=== PATIENT | female | born 1975 | race Caucasian/White ===

== ENCOUNTER → 2020-11-12 09:42 | Outpatient (CLI) | payer OTHER, SELFPAY ==
--- NOTE | 2020-11-12 14:54 | DI.MAMMO_ITS ---
EXAM: MG MAMMO SCREENING CLINICAL HISTORY: screening,Z12.39. TECHNIQUE: Bilateral full field digital CC and MLO mammographic images were obtained with 3D tomosyn thesis and utilizing computer aided detection (CAD). COMPARISON: None. This is a baseline screening mammogram on this 45-year-old patient. FINDINGS: No significant radiograph findings in the left breast. However, in the medial aspect of the right breast there is an ominous ill-defined spiculated mass timmy suring approximately the 4 x 3 centimetres which is suspicious for malignancy. There is some associated architectural distortion. There are no malignant-appearing microcalcification groups in either breast. IMPRESSION: 1. Finding in the medial aspect of the right breast which is highly suspicious for malignancy. Spot compression views and ultrasound are recommended. 2. No radiographic evidence malignancy in left breast. Report called by myself to [id number] Thursday11/12/2020 15:05 p.m.. Report given to the covering provider Sonia Horan. BI-RADS Category 0 - Assessment Incomplete: Need additional imaging evaluation Breast Density - Category C - Heterogeneously dense Breast density Category C or D implies that the patient has dense breast tissue. Dense breast tissue can make it harder to find cancer on a mammogram. Dense breast tissue is also associated with an incr eased risk of breast cancer. This information about the result of the mammogram report was provided to the patient to raise their awareness. Use this report when you speak with the patient about their risks for breast cancer, which includes their family history. At that time, you may recommend additional screening tests (Ultrasoun d or MRI) as these tests may add significant information. A negative radiographic report should not delay biopsy if a dominant or clinically suspicious mass is present. Up to ten percent of cancers are not identified on mammography. A negative report may reinforce clinical impression. Adenosis and dense breasts may obscure an underlying neoplasm. False positive reports average 6 to 10%. Patient will receive a letter notifying them of these results.
== END ==
PROVIDERS: PCP Student in an Organized Health Care Education/Training Program; Visit Provider Student in an Organized Health Care Education/Training Program
DX: Z12.31 Encounter for screening mammogram for malignant neoplasm of breast (principal); R92.8 Other abnormal and inconclusive findings on diagnostic imaging of breast
CPT/HCPCS: 77063; 77067

== ENCOUNTER → 2020-11-15 01:10 | Outpatient (CLI) | payer OTHER, SELFPAY ==
--- NOTE | 2020-11-15 | DI.US_ITS ---
Exam(s) MG MAMMO SCREEN CALL BACK UNI US BREAST RT COMPLETE EXAM: MAMMO SCREEN CALL BACK UNI CLINICAL HISTORY: F/U MAMMO, SPICULATED MASS,ARCHITECTURAL DISTORTION. TECHNIQUE: Unilateral spot mammographic images were obtained with 3D tomosynthesis and utilizing [employer] puter aided detection (CAD). This was followed by complete right breast ultrasound. During today's u ltrasound study a cutaneous Beakley spot was placed over finding at the two-three o'clock position an d thereafter the right breast was remammogrammed for correlative purposes. COMPARISON: Prior recent baseline mammogram of 11/12/2020 was reviewed. FINDINGS: Additional mammographic views performed today reveal a prominent spiculated mass in the medial aspect of the right breast. Adjacent to it is another smaller 4 x 4 millimeter nodular density. These additional mammographic views were followed by complete RIGHT BREAST ULTRASOUND whereby all 4 q uadrants, the retroareolar region, and the ipsilateral right axilla were scanned. The ultrasound reveals subtle area of abnormal finding at 2-3 o'clock position which is somewhat less impressive than expected, given the findings on the mammogram. Nevertheless, there is some very mil d slightly decreased through transmission from this area evident this area measures approximately 3.4 by 0.2 cm. Small 4 millimeters cystic structure adjacent to it may correspond to the similar size f inding on the mammogram. At this point a cutaneous Beakley triangle was placed over this finding using ultrasound guidance and thereafter repeat CC and MLO mammographic views were performed. This revealed less than perfect cor relation to the suspicious finding on the mammogram. IMPRESSION: Findings are suspicious for malignancy in the medial aspect of the right breast. Breast surgery consultation is recommended. Findings and recommendations were discussed by myself with the patient and her sister today. BI-RADS Category 4 - Suspicious Abnormality: Biopsy should be considered Breast Density - Category B - Scattered areas of fibroglandular density Breast density Category C or D implies that the patient has dense breast tissue. Dense breast tissue can make it harder to find cancer on a mammogram. Dense breast tissue is also associated with an incr eased risk of breast cancer. This information about the result of the mammogram report was provided to the patient to raise their awareness. Use this report when you speak with the patient about their risks for breast cancer, which includes their family history. At that time, you may recommend additional screening tests (Ultrasoun d or MRI) as these tests may add significant information. A negative radiographic report should not delay biopsy if a dominant or clinically suspicious mass is present. Up to ten percent of cancers are not identified on mammography. A negative report may reinforce clinical impression. Adenosis and dense breasts may obscure an underlying neoplasm. False positive reports average 6 to 10%. Patient will receive a letter notifying them of these results.
== END ==
PROVIDERS: PCP Student in an Organized Health Care Education/Training Program; Visit Provider Student in an Organized Health Care Education/Training Program
DX: Z12.31 Encounter for screening mammogram for malignant neoplasm of breast (principal); R92.8 Other abnormal and inconclusive findings on diagnostic imaging of breast; N63.12 Unspecified lump in the right breast, upper inner quadrant
CPT/HCPCS: 76642; 77063; 77067

== ENCOUNTER 2020-11-15 02:20 | Outpatient (CLI) | payer OTHER, SELFPAY ==
[2020-11-15 11:42] LABS: HCT 42.8 % (36.0-46.0); HGB 14.5 g/dL (11.2-15.7); MCH 30.7 pg (27.0-33.0); MCHC 33.9 % (32.0-36.0); MCV 90.7 fL (80-95); MPV 8.9 fL (8.0-11.0); Platelet Count 230 10^3/uL (130-400); RBC 4.72 10^6/uL (3.93-5.22); RDW 12.6 % (11.7-14.6); RDW-SD 41.6 fL; WBC 10.32 10^3/uL (4.4-10.8)
[2020-11-15 12:57] LABS: ALT 25 U/L (14-59); AST 13 U/L (15-37); Albumin 4.2 g/dL (3.4-5.0); Alkaline Phosphatase 46 U/L (46-116); Anion Gap 8.5 mmol/L (3-11); BUN 12 mg/dL (7-18); Bilirubin, Total 1.3 mg/dL (0.2-1.0); CO2 29.5 mmol/L (21.0-32.0); CREATININE 0.7 mg/dL (0.55-1.02); Calcium 9.3 mg/dL (8.5-10.1); Calculated LDL 115 mg/dL (<100); Chloride 104 mmol/L (98-107); Cholesterol 201 mg/dL (<200); Glucose 76 mg/dL (74-106); HDL Cholesterol 64 mg/dL (40-60); Potassium 4.4 mmol/L (3.5-5.1); Sodium 142 mmol/L (136-145); TSH (W/Ref FT4) 0.82 uIU/mL (0.36-3.74); Total Protein 7.5 g/dL (6.4-8.2); Triglyceride 110 mg/dL (<150)
== END 2020-11-15 02:21 | disposition home or self-care (01) ==
LOC: LBO 02:20
PROVIDERS: PCP Student in an Organized Health Care Education/Training Program; Visit Provider Student in an Organized Health Care Education/Training Program
DX: R63.5 Abnormal weight gain (principal); R53.83 Other fatigue; N92.1 Excessive and frequent menstruation with irregular cycle; R79.89 Other specified abnormal findings of blood chemistry; Z82.49 Family history of ischemic heart disease and other diseases of the circulatory system; G47.9 Sleep disorder, unspecified; D25.9 Leiomyoma of uterus, unspecified
CPT/HCPCS: 36415; 80053; 80061; 85027; 84443

== ENCOUNTER 2020-11-20 15:32 | Outpatient (REF) | payer OTHER, SELFPAY ==
--- NOTE | 2020-11-20 13:30 | PAPFT_PTH ---
PATIENT: Yesenia Young LOC: [facility] U#:[id number] AGE/SX: 45/F ROOM: RE11/20/[address]: Zulema Roger DO : 1975 BED: DIS: 11/20/2020 SPEC #: [id number] RECD: 11/20/20 17:54 STATUS: FLORENCIO REKojo #: [id number] [place]: 11/20/20 13:[address]: Zulema Roger DEPT: [facility] Cytology RECD BY: Lakshmi Fuller ENTERED: 11/20/20 17:54 SP TYPE: PAPFT OTHR DR: Melanie Arango DO Tissues: 1 - CX/ENDOCX FOR PAP SMEARS Procedures: PAP THIN PREP/[facility] Screening HPV DNA PROBE Comments: [id number] (CHLAMYDIA/GC)
[2020-11-21 14:28] LABS: Chlamydia Result Negative (Negative); GC Result Negative (Negative)
== END 2020-11-20 15:33 | disposition home or self-care (01) ==
LOC: LBN 15:32
PROVIDERS: PCP Student in an Organized Health Care Education/Training Program; Visit Provider Obstetrics & Gynecology
DX: Z11.3 Encounter for screening for infections with a predominantly sexual mode of transmission (principal); Z12.4 Encounter for screening for malignant neoplasm of cervix; Z11.51 Encounter for screening for human papillomavirus (HPV)
CPT/HCPCS: 87491; 87591; 88142; 87624

== ENCOUNTER 2021-10-08 11:11 | Outpatient (REF) | payer OTHER, SELFPAY ==
[2021-10-08 12:15] LABS: Bilirubin Negative (Negative); Blood Moderate (Negative); Clarity Cloudy (Clear); Glucose Negative (Negative); Ketones Negative (Negative); Leukocyte Esterase Trace (Negative); Nitrite Negative (Negative); Specific Gravity >= 1.030 (1.005-1.025); Urobilinogen 0.2 EU/dL (Up TO 0.2)
[2021-10-08 12:22] LABS: WBC Negative HPF (0-5)
[2021-10-08 12:23] LABS: Bacteria Moderate HPF (Negative); C & S Indicated? No/Sq. Contamination; Casts 3-5 Hyaline LPF (Negative); Crystals Many Amorphous HPF (Negative); Epithelial Cells Many HPF (Negative); Mucus Moderate (Negative)
== END 2021-10-08 11:12 | disposition home or self-care (01) ==
LOC: LBN 11:11
PROVIDERS: PCP Student in an Organized Health Care Education/Training Program; Visit Provider Student in an Organized Health Care Education/Training Program
DX: M31.0 Hypersensitivity angiitis (principal); R82.998 Other abnormal findings in urine
CPT/HCPCS: 81003; 81015

== ENCOUNTER 2021-10-24 15:55 | Outpatient (REF) | payer OTHER, SELFPAY ==
[2021-10-24 18:15] LABS: Abs Immature Grans 0.03 10^3/uL (0.0-0.06); Absolute Basophil Count 0.08 10^3/uL (0.0-0.2); Absolute Eosinophil Count 1.05 10^3/uL (0.0-0.7); Absolute Lymphocyte Count 3.09 10^3/uL (1.2-3.4); Absolute Monocyte Count 0.66 10^3/uL (0.1-0.8); Absolute Neutrophil Count 5.54 10^3/uL (1.2-6.7); Basophils % 0.8; HGB 14.4 g/dL (11.2-15.7); Immature Grans % 0.3; Lymphocytes % 29.6; MCH 30.3 pg (27.0-33.0); MCHC 34.3 % (32.0-36.0); MCV 88.4 fL (80-95); MPV 9.4 fL (8.0-11.0); Monocytes % 6.3; Nucleated RBC 0 %; Platelet Count 331 10^3/uL (130-400); RBC 4.75 10^6/uL (3.93-5.22); RDW 12.1 % (11.7-14.6); RDW-SD 39.6 fL; WBC 10.45 10^3/uL (4.4-10.8)
[2021-10-24 18:28] LABS: ALT 23 U/L (14-59); AST 17 U/L (15-37); Albumin 4.2 g/dL (3.4-5.0); Alkaline Phosphatase 67 U/L (46-116); Anion Gap 9.9 mmol/L (3-11); BUN 12 mg/dL (7-18); CO2 27.1 mmol/L (21.0-32.0); CREATININE 0.7 mg/dL (0.55-1.02); Calcium 9.1 mg/dL (8.5-10.1); Chloride 102 mmol/L (98-107); Glucose 76 mg/dL (74-106); Potassium 3.9 mmol/L (3.5-5.1); Sodium 139 mmol/L (136-145); Total Protein 7.8 g/dL (6.4-8.2)
[2021-10-24 22:14] LABS: Lab Add On Test DONE
[2021-10-25 17:21] LABS: Rheumatoid Factor <8.6 IU/mL (<12.0)
[2021-10-25 20:08] LABS: Cyclic Citrullinated Peptide <2.5 U/mL (<5.0)
[2021-10-28 13:49] LABS: ANCA Interpretation Negative (Negative)
[2021-10-28 13:50] LABS: ANA Interpretation Negative (Negative)
== END 2021-10-24 15:56 | disposition home or self-care (01) ==
LOC: LBN 15:55
PROVIDERS: PCP Student in an Organized Health Care Education/Training Program; Visit Provider Student in an Organized Health Care Education/Training Program
DX: M31.0 Hypersensitivity angiitis (principal); M35.9 Systemic involvement of connective tissue, unspecified; M00.9 Pyogenic arthritis, unspecified; R60.9 Edema, unspecified; G93.3 Postviral and related fatigue syndromes; N28.9 Disorder of kidney and ureter, unspecified; I77.6 Arteritis, unspecified
CPT/HCPCS: 80053; 86200; 86255; 85025; 86038; 86431

== ENCOUNTER → 2021-10-29 01:46 | Outpatient (CLI) | payer OTHER, SELFPAY ==
--- NOTE | 2021-10-29 06:45 | DI.RAD_ITS ---
Exam(s) XR CHEST 2V PA LATERAL EXAM: XR CHEST 2V PA LATERAL CLINICAL HISTORY: new onset sob and wheezing flare, R06.02, R06.2 TECHNIQUE: 2D digital imaging was performed of the chest. Two images were obtained. PA and lateral views were obtained. COMPARISON: CR CHEST 2 VIEWS PA,LAT from 12/02/2015 FINDINGS: MEDIASTINUM: Normal. HEART: Normal. PULMONARY VASCULATURE: Normal. LUNGS: Clear. PLEURAL SPACE: No pleural effusion or pneumothorax. BONE:Within normal limits for the patient's age. OTHER FINDINGS:Normal. IMPRESSION: No acute pulmonary findings. DATA REPOSITORY: RADIATION DOSE DELIVERED:
--- NOTE | 2021-10-29 06:45 | DI.RAD_ITS ---
Exam(s) XR SHOULDER LT COMPLETE 2+V EXAM: XR SHOULDER LT COMPLETE 2+V CLINICAL HISTORY: evaluate joint in light of RHEUM Dz, autoimmune dz, aileen shoulder pain. TECHNIQUE: 2D digital imaging was performed of the left shoulder. Five images were obtained. AP, G rashey, Y-view and axillary views were obtained. COMPARISON: No exams were available for comparison FINDINGS: BONES: No acute fracture is present. No bony destructive lesion is seen. JOINTS: No dislocation present. There is a tiny well circumscribed nonspecific osseous density adjace nt to the distal clavicle. It appears old. SOFT TISSUE: Normal. IMPRESSION: No acute abnormality. DATA REPOSITORY: RADIATION DOSE DELIVERED:
--- NOTE | 2021-10-29 06:45 | DI.RAD_ITS ---
Exam(s) XR SHOULDER RT COMPLETE 2+V EXAM: XR SHOULDER RT COMPLETE 2+V CLINICAL HISTORY: evaluate joint in light of RHEUM Dz, aileen shoulder pain, autoimmune dz. TECHNIQUE: 2D digital imaging was performed of the right shoulder. Five images were obtained. AP, Grashey, Y-view and axillary views were obtained. COMPARISON: No exams were available for comparison FINDINGS: BONES: No acute fracture is present. No bony destructive lesion is seen. JOINTS: No dislocation present. SOFT TISSUE: Normal. IMPRESSION: Unremarkable radiographs of the right shoulder. DATA REPOSITORY: RADIATION DOSE DELIVERED:
== END ==
PROVIDERS: PCP Student in an Organized Health Care Education/Training Program; Visit Provider Student in an Organized Health Care Education/Training Program
DX: R06.02 Shortness of breath (principal); R06.2 Wheezing; M25.511 Pain in right shoulder; M25.512 Pain in left shoulder; M35.89 Other specified systemic involvement of connective tissue; Z82.69 Family history of other diseases of the musculoskeletal system and connective tissue
CPT/HCPCS: 71046; 73030

== ENCOUNTER 2021-12-30 12:51 | Outpatient (REF) | payer OTHER, SELFPAY ==
[2021-12-30 14:21] LABS: Abs Immature Grans 0.02 10^3/uL (0.0-0.06); Absolute Basophil Count 0.07 10^3/uL (0.0-0.2); Absolute Eosinophil Count 0.88 10^3/uL (0.0-0.7); Absolute Lymphocyte Count 2.16 10^3/uL (1.2-3.4); Absolute Monocyte Count 0.48 10^3/uL (0.1-0.8); Absolute Neutrophil Count 4.29 10^3/uL (1.2-6.7); Basophils % 0.9; Eosinophils % 11.1; HCT 39.6 % (36.0-46.0); HGB 14.2 g/dL (11.2-15.7); Immature Grans % 0.3; Lymphocytes % 27.3; MCH 31.6 pg (27.0-33.0); MCHC 35.9 % (32.0-36.0); MCV 88 fL (80-95); MPV 9.5 fL (8.0-11.0); Monocytes % 6.1; Neutrophils % 54.3; Platelet Count 267 10^3/uL (130-400); RBC 4.49 10^6/uL (3.93-5.22); RDW 12.4 % (11.7-14.6); RDW-SD 39.9 fL
[2022-01-01 10:16] LABS: IgE 77 IU/mL (<158)
== END 2021-12-30 12:52 | disposition home or self-care (01) ==
LOC: LBN 12:51
PROVIDERS: PCP Student in an Organized Health Care Education/Training Program; Visit Provider Student in an Organized Health Care Education/Training Program
DX: J45.909 Unspecified asthma, uncomplicated (principal)
CPT/HCPCS: 82785; 85025

== ENCOUNTER 2022-01-13 03:59 | Outpatient (CLI) | payer OTHER, SELFPAY ==
[2022-01-13] MEDS: Inhaler, Assist Device 1 EACH MC (09:12)
[2022-01-13] MEDS: Albuterol HFA 18 GM 200 PUFF INH IH (09:12)
--- NOTE | 2022-01-14 11:24 | W.PFT ---
Date of service: 01/13/22 Time of Service: 08:05 Pulmonary Function Test Result Requesting Provider Bobo Indications: Asthma Interpretation Spirometry: There is no airflow limitation. There is no significant bronchodilator response Lung Volumes: Lung volumes are normal. Diffusion Capacity: Diffusion is normal Airway Pressure: Normal airways resistance. Impression Normal pulmonary functions testing Clinical Correlation therefore is recommended.
== END 2022-01-13 04:00 | disposition home or self-care (01) ==
LOC: RT 04:00
PROVIDERS: PCP Student in an Organized Health Care Education/Training Program; Visit Provider Student in an Organized Health Care Education/Training Program
DX: J45.909 Unspecified asthma, uncomplicated (principal); Z86.16 Personal history of COVID-19; Z87.891 Personal history of nicotine dependence
CPT/HCPCS: 94060; 94726; 94729

== ENCOUNTER 2022-03-20 07:11 | Day surgery (SDC) | payer OTHER, SELFPAY ==
--- NOTE | 2022-03-20 07:10 | W.PM.DSUDISC ---
Discharge Plan Disposition Patient Disposition: HOME Condition: Good Discharge Details Attending Provider: Marko Medrano Primary Care Provider: Melanie Arango Home Meds and New Rx's Prescriptions: Continued propranolol 10 mg tablet 10 mg PO BID PRN (Reason: Palpitations; Anxiety Episode) Qty: 60 0RF Rx Instructions: Trial, may start w/ half tab x 1 week. naproxen 500 mg tablet 500 mg PO BID PRN (Reason: pain) Qty: 40 0RF Rx Instructions: Start by taking with food 2x/d x4 days, then PRN pain. loratadine 10 mg tablet 10 mg PO BID Qty: 40 0RF Hold Instructions: Changed by Provider Rx Instructions: Pruritic rash albuterol sulfate [ProAir HFA] 90 mcg/actuation HFA aerosol inhaler 2 puff inhalation Q6H PRN (Reason: shortness of breath or wheezing) Qty: 8.5 1RF Rx Instructions: Recommending BID 2' COVID, & Q2H PRN Wheezing (DME) POCKET CHAMBER Spacer See Rx Instructions .ROUTE .MEDSUPPLY Qty: 1 0RF Rx Instructions: As directed fluticasone furoate-vilanterol [Breo Ellipta] 100-25 mcg/dose blister with device 1 inh inhalation DAILY Qty: 60 12RF multivitamin Tablet 1 tab PO DAILY Digestive Advantage Advanced 10 billion cell capsule 10 cell PO DAILY oxybutynin chloride 10 mg tablet extended release 24hr 10 mg PO DAILY calcium carbonate 600 mg calcium (1,500 mg) tablet 1,200 mg PO DAILY Discontinued polyethylene glycol 3350 17 gram/dose powder 238 g PO ONCE Qty: 238 0RF Rx Instructions: take per colonoscopy instructions bisacodyl [Dulcolax (bisacodyl)] 5 mg tablet,delayed release (DR/EC) 5 mg PO ONCE Qty: 4 0RF Rx Instructions: take per colonoscopy instructions No Action Dulera 50-5 mcg/actuation Hfa Aerosol Inhaler 2 puff INHALATION Q12H Discharge Instructions Instructions: Colonoscopy (DC) Additional Instructions: 1. If tolerated, consume a soft, low fiber diet for 1-2 days. 2[address] Do not drive, drink alcohol, operate machinery, make critical decisions, or do activities that require coordination or balance for 24 hours. 3. Because air was put into your colon during the procedure, expelling air from your rectum (passing gas or farting) is normal. 4. You may not have a bowel movement for 1-3 days because of the colonoscopy prep. This is normal. 5. Go directly to the emergency room if you notice any of the following: Develop chills (warm to touch), or if you have a thermometer and your temperature is above 101 Difficulty breathing or difficultly swallowing Persistent vomiting Severe abdominal pain, other than gas cramps Severe chest pain Black, tarry stools Any bleeding ? exceeding one tablespoon 6. Call your physician if the site where your intravenous was started becomes red, swollen, painful, and warm to touch. 7. Your physician has reviewed your pre-procedure medications. Please continue to take those medications as previously ordered. You will be given specific information/education regarding any changes to your medications before leaving. Referrals: Melanie Arango DO [Primary Care Provider] - Activity:: Activity as Tolerated Shower/Bathe:: 24 hours Diet:: As Tolerated Discharge Orders Discharge Orders: Discharge Order (Routine); Ordered 03/20/22 Ordered By: Marko Medrano DS: Diagnosis Discharge Diagnosis (1) S/P colonoscopy: Asessment and Plan: follow up 10 years for next scope
--- NOTE | 2022-03-20 07:13 | COLE_ITS ---
Colonoscopy Report Date of procedure: 03/20/22 Pre-op diagnosis general: screening colonoscopy Post-op diagnosis procedure note: same Procedure: screening colonoscopy Surgeon: Marko Medrano Anesthesia Type: General:No Airway Estimated blood loss (mL): 0 Pathology: none sent Complications: None Disposition: same day Indications: Susan is a 46-year-old woman who is here for screening colonoscopy. Prep: Miralax/Dulcolax Procedure Start Time: 08:51 Procedure End Time: 09:13 Retraction Time: 16 Procedure Description: After the induction of monitored anesthetic care, and with the patient in left lateral decubitus position, I began by performing an external anorectal exam.? Perineum and skin were normal, as was the anal verge.? There was no evidence of external hemorrhoids.? Next, I performed a digital rectal exam.? I did not appreciate any abnormal findings.? Next, I advanced a colonoscope into the rectal vault.? I performed retroflexion.? I did not see signs of pathologic internal hemorrhoids.? Using insufflation, I then advanced the colonoscope beyond the rectal folds and into the sigmoid colon before advancing towards the cecum.? The quality of the prep was excellent.? The scope was noted to be in the cecum by identification of the ileocecal valve and appendiceal orifice.? I then began withdrawing the colonoscope using repeated irrigation as necessary for full evaluation of the colonic mucosa. ?Once the scope was withdrawn to the level of the rectum, great care was taken to examine portions of the rectal fol ds.? Finally, the scope was withdrawn and the patient was brought to the same- day surgery recovery unit as the anesthetic wore off. ?The findings and instructions were shared with the patient prior to discharge.
[2022-03-20 07:23] VITALS: BP 137/97; PULSE 77; RESP 16; TEMP 36.5; O2SAT 96
[2022-03-20] MEDS: Lactated Ringers 1,000 ML 80 ML IV (07:54)
--- NOTE | 2022-03-20 08:02 | ANES.PREOP_ITS ---
General Info Date of Service Date Performed: 03/20/22 Height: 5 ft 8 in Weight: 105.1 kg Body Mass Index (BMI): 35.2 Surgical Procedure: Operation Date: 03/20/22 08:50 Proposed Procedure Side Surgeon vikram Medrano MD Meds Allergies and Home Medications Allergies Allergy/AdvReac Type Severity Reaction Status Date / Time bacitracin Allergy Mild RASH Unverified 03/20/22 07:18 [From Neosporin ([id number])] bacitracin zinc Allergy Mild RASH Unverified 03/20/22 07:18 [From Neosporin ([id number])] neomycin sulfate Allergy Mild RASH Unverified 03/20/22 07:18 [From Neosporin ([id number])] polymyxin B Allergy Mild RASH Unverified 03/20/22 07:18 [From Neosporin ([id number])] SEASONAL ALLERGIES Allergy Intermediate Uncoded 03/20/22 07:18 Home Medication Medication Instructions Recorded propranolol 10 mg tablet 10 mg PO BID PRN Palpitations; 09/23/21 Anxiety Episode #60 tabs naproxen 500 mg tablet 500 mg PO BID PRN pain #40 tabs 10/14/21 loratadine 10 mg tablet 10 mg PO BID #40 tabs 10/24/21 albuterol sulfate 90 mcg/actuation 2 puff inhalation Q6H PRN 11/01/21 aerosol inhaler (ProAir HFA) shortness of breath or wheezing #8.5 grams inhalational spacing device #1 ea 11/01/21 (POCKET CHAMBER spacer) L.acidoph, paracasei,B. lactis 10 10 cell PO DAILY 02/26/22 billion cell capsule (Digestive Advantage Advanced Probiotic) calcium carbonate 600 mg calcium 1,200 mg PO DAILY 02/26/22 (1,500 mg) tablet multivitamin 1 tab PO DAILY 02/26/22 oxybutynin chloride 10 mg 10 mg PO DAILY 02/26/22 tablet,extended release 24 hr fluticasone furoate 100 1 inh inhalation DAILY #60 ea 03/04/22 mcg-vilanterol 25 mcg/dose inhalation powder (Breo Ellipta) mometasone-formoterol HFA 50 mcg-5 2 puff inhalation Q12H 03/20/22 mcg/actuation aerosol inhaler (Dulera) Current Visit Medications: Current Medications Generic Name Dose Route Start Last Admin Trade Name Eve PRN Reason Stop Dose Admin Ringer's Solution 1,000 mls @ 80 mls/hr 03/20/22 06:00 03/20/22 07:54 IV 04/18/22 23:59 80 mls/hr INFUSION AAMIR Administration IV Miscellaneous Supplies 1 each 03/20/22 06:00 Iv Access IV 04/18/22 23:59 DIRECTED AAMIR Sodium Chloride 0 ml 03/20/22 06:00 Normal Saline Flush 10 Ml Syr IV 04/18/22 23:59 PRN PRN Sodium Chloride 0 ml 03/20/22 06:00 Normal Saline 10 Ml Vial IJ 04/18/22 23:59 DIRECTED PRN Sterile Water 0 ml 03/20/22 06:00 Water,Injection,Sterile 10 Ml Vial IJ 04/18/22 23:59 DIRECTED PRN PFSH Active Problems Active Problems: Problem Status Onset Code Vasculitis I77.6 Dyspnea R06.00 Asthma J45.909 Family hx of colon cancer Z80.0 Inflammation of intestines K52.9 Acute hemorrhoid K64.9 COVID-19 U07.1 Henoch-Schonlein purpura D69.0 Wheezing R06.2 Bilateral shoulder pain M25.511, M25.512 Abnormal urine finding R82.90 Post viral syndrome 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 Family history of rheumatic joint disease Z82.69 Autoimmune disease M35.9 Edema R60.9 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 Atypical ductal hyperplasia of right breast N60.91 Urinary incontinence, mixed N39.46 Cystocele H/O right breast biopsy Z98.890 DUB (dysfunctional uterine bleeding) N93.8 Abnormal mammogram of left breast R92.8 Family history of breast cancer Z80.3 Family history of CVA Z82.3 BMI 30.0-30.9,adult Z68.30 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 CAMACHO MCGOVERN ([facility] [place] Onc). History of transurethral resection of ureterocele (03/06/16) S/P D&C (status post dilation and curettage) (11/10/03) S/P surgical removal of pilonidal cyst Tobacco Smoking/Tobacco Use Status: Former Tobacco Use Alcohol Alcohol Intake: current Alcohol intake frequency: 0-2 drinks per day Alcohol type: beer and wine Substance Use Substance use: Occasionally Substance use type: marijuana Vital Signs and Lab Results Vital Signs Most Recent Vital Signs in EMR: Most Recent Vital Signs Temp Pulse Resp BP Pulse Ox 36.5 C 77 16 137/97 H 96 03/20/22 07:23 03/20/22 07:23 03/20/22 07:23 03/20/22 07:23 03/20/22 07:23 Point of Care Results Point of Care Results: POC- Test(urine) Negative 03/20/22 07:43 Lab Results Blood Type / Crossmatch: No Data to Display Complete Blood Count: No Data to Display Complete Metabolic Panel: No Data to Display Liver Function Panel: No Data to Display Coagulation Panel: No Data to Display Cardiac Panel: No Data to Display Arterial Blood Gas: No Data to Display Venous Blood Gas: No Data to Display Pancreas Panel: No Data to Display Thyroid Panel: No Data to Display Infectious Disease: No Data to Display Blood Cultures: No Data to Display Toxicology Panel: No Data to Display Panel: No Data to Display Anesthesia Assessment and Plan Anesthesia History Personal History: No History of Anesthesia Complications Family History: No Family History of Anesthesia Complications Exercise Tolerance Exercise Tolerance: Metabolic Equivalents>4 Pertinent Negatives Pertinent Negatives: No Symptoms of GERD, No Major Cardiovascular Symptoms or Complaints and No History of CVA/TIA Cardiac & Pulmonary Exam Cardiac Exam: Normal S1/S2 Heart Sounds Pulmonary Exam: Clear Bilateral Breath Sounds Implantable Cardiac Device Does patient have a Pacemaker or an ICD?: No Airway Exam Known Difficult Airway: No Mallampati Class: 2 Mouth Opening: Normal (> 3cm) Thyromental Distance: Greater than 3 cm Neck Range of Motion: Full ROM Neck Circumference: Normal Teeth Condition: Normal Dentition ASA Classification ASA Score: ASA 2 Emergency Case?: No NPO Status NPO Status: NPO Clears >2 hours, Solids >8 hours Status Status: Negative HCG Anesthesia Plan Resuscitation Status: Full Code Anesthesia Technique: General Anesthesia Airway Planned: Natural Airway Monitors Used: Standard Monitors
[2022-03-20 08:04] VITALS: BMI 35.2
[2022-03-20 09:20] VITALS: BP 121/78; PULSE 74; RESP 16; TEMP 36.4; O2SAT 94
[2022-03-20 09:50] VITALS: BP 117/76; PULSE 65; RESP 16; TEMP 36.3; O2SAT 96
--- NOTE | 2022-03-20 14:56 | W.ANESPOSTOP ---
Postoperative Evaluation Date, Time and Location Date Performed: 03/20/22 Time Performed: 14:56 Patient Location: Day Surgery Unit Vital Signs Most Recent Imported Vital Signs: Most Recent Vital Signs Temp Pulse Resp BP Pulse Ox 36.3 C L 65 16 117/76 96 03/20/22 09:50 03/20/22 09:50 03/20/22 09:50 03/20/22 09:50 03/20/22 09:50 Pain Score Most Recent Pain Score: Most Recent Pain Score Pain Level 0 03/20/22 09:50 Assessment Mental Status: Awake (Alert & Oriented to Patient Baseline) Airway and Respiratory Function: Patent airway with normal (patient baseline) respiratory exam Cardiovascular Function: Hemodynamically Stable Hydration Status: Adequately Hydrated Nausea & Vomiting: No Nausea or Vomiting Pain: Pt. Denies Any Pain Peripheral Nerve Block: Patient did not receive a nerve block
== END 2022-03-20 10:16 | disposition home or self-care (01) ==
LOC: SUR 07:12
PROVIDERS: PCP Student in an Organized Health Care Education/Training Program; Visit Provider Surgery
PROC: 0DJD8ZZ Inspection of Lower Intestinal Tract, Via Natural or Artificial Opening Endoscopic (ICD-10-PCS; CPT 45378; principal; 2022-03-20 08:45)
DX: Z12.11 Encounter for screening for malignant neoplasm of colon (principal)
CPT/HCPCS: 45378; 81025

== ENCOUNTER 2022-06-24 03:26 | Outpatient (CLI) | payer OTHER, SELFPAY ==
[2022-06-24 11:15] LABS: Bacteria Negative HPF (Negative); C & S Indicated? No; Casts Negative LPF (Negative); Crystals Negative HPF (Negative); Epithelial Cells Rare HPF (Negative); Mucus Negative (Negative); Other Cells Rare Transitional (Negative); RBC 0-2 HPF (0-2); WBC 0-2 HPF (0-5)
[2022-06-24 11:35] LABS: PROTEIN < 6.0 mg/dL
[2022-06-24 11:35] LABS: Anion Gap 7.3 mmol/L (3-11); BUN 9 mg/dL (7-18); CO2 28.7 mmol/L (21.0-32.0); CREATININE 0.7 mg/dL (0.55-1.02); Calcium 9.2 mg/dL (8.5-10.1); Chloride 101 mmol/L (98-107); Estimated GFR 107.95 (mL/min/1.73m2); Glucose 75 mg/dL (74-106); Potassium 3.6 mmol/L (3.5-5.1); Sodium 137 mmol/L (136-145)
[2022-06-24 11:37] LABS: COMMENT (LAB VIEW ONLY) < 13.00 mg/dL
[2022-06-24 11:40] LABS: COMMENT (LAB VIEW ONLY) < 13.00 mg/dL
== END 2022-06-24 03:27 | disposition home or self-care (01) ==
PROVIDERS: PCP Student in an Organized Health Care Education/Training Program; Visit Provider Internal Medicine Nephrology
DX: D69.0 Allergic purpura (principal); R60.9 Edema, unspecified; U07.1 COVID-19; Z91.89 Other specified personal risk factors, not elsewhere classified; I12.9 Hypertensive chronic kidney disease with stage 1 through stage 4 chronic kidney disease, or unspecified chronic kidney disease; N05.9 Unspecified nephritic syndrome with unspecified morphologic changes; Z87.448 Personal history of other diseases of urinary system; K52.9 Noninfective gastroenteritis and colitis, unspecified; K64.9 Unspecified hemorrhoids; I77.6 Arteritis, unspecified; R31.9 Hematuria, unspecified
CPT/HCPCS: 36415; 80048; 86141; 81015; 82043; 82565; 82570; 83735; 84156

== ENCOUNTER → 2022-06-24 09:58 | Outpatient (CLI) | payer OTHER, SELFPAY ==
--- NOTE | 2022-06-24 12:56 | DI.US_ITS ---
APPROVED REPORT EXAM: Comprehensive 2D, Doppler, and color-flow Echocardiogram Patient Location: Out-Patient Lens Polisher: Starr Bills RDCS (AE) Indications: Evaluate cardiac function, HTN, Dyspnea, Leg edema, Vasuclitis Other Information Study Quality: Adequate Conclusion Normal left ventricular wall thickness and chamber size. Estimated ejection fraction is 60%. Wall m otion is normal Normal right ventricular size and systolic function Both atria are normal in size There is no structural or hemodynamically significant valvular disease Normal estimated right ventricular systolic pressure 25 mmHg Wall motion Left Ventricle The left ventricle is normal size. The left ventricular systolic function is normal. The left ventric ular ejection fraction is within the normal range. There is normal left ventricular wall thickness. T here is normal LV segmental wall motion. There is no ventricular septal defect visualized. LVEF is 60 %. Right Ventricle The right ventricle is normal size. The right ventricular systolic function is normal. The RVSP is 25 .3mmHg. Atria The left atrium size is normal. The right atrium size is normal. The interatrial septum is intact wit h no evidence for an atrial septal defect. Aortic Valve The aortic valve is normal in structure. Aortic valve is trileaflet. There is no aortic valvular sten osis. No aortic regurgitation is present. Mitral Valve The mitral valve is normal in structure. No evidence of mitral valve stenosis. Trace mitral regurgita tion. Tricuspid Valve The tricuspid valve is normal in structure. There is no tricuspid valve stenosis. Trace tricuspid reg urgitation. Pulmonic Valve The pulmonary valve is normal in structure. There is no pulmonic valvular stenosis. There is no pulmo kristel valvular regurgitation. Great Vessels The aortic root is normal in size. The ascending aorta is normal in size. Aortic arch is normal in ca liber. IVC is normal in size and collapses >50% with inspiration. Pericardium There is no pericardial effusion. 2D Dimensions IVSD d PLAX 1.00 cm F: 0.6-1.0 LV Vol A2C d MOD 121.3 mL LVPW d PLAX 1.02 cm F: 0.6 - 1.0 LV Vol A4C d MOD 109.7 mL LVID d PLAX 4.87 cm F: 3.8 - 5.2 LA vol/ BSA A4C s A-L 23.4 mL/m2 LVDs 3.15 cm F: 2.2 - 3.5 LA Area A4C s MOD 18.91 cm2 Ao Root d 3.03 cm F: 2.7 - 3.3 LV EF A4C MOD 60.0 % RA Area A4C 13.44 cm2 LV EF A2C MOD 59.9 % RA Vol/ BSA A4C s A-L 14.1 mL/m2 LV EF Biplane MOD 59.3 % Ao Asc Diam d 3.33 cm F: 2.3 - 3.1 SV 69.58 mL LV EF Teichholz 64.3 % SV Index 31.50 mL/m2 LVEF (Briceno's) 59.29 % F: 54 - 74 LV Volume 85.24 mL F: 46 - 106 LV Volume Index 38.57 mL/m2 F: 29 - 61 LV Vol Biplane MOD 117.4 mL FS 35.10 % M-Mode TAPSE 2.55 cm (M/F) >1.7 LV Diastology MV E' medial 0.098 (>0.07 m/s) E/A Ratio 1.6 LV E/e MED 8.00 (<14) MV E Vmax 0.78 (0.4-1.3 m/s) MV E' lateral 0.088 (>0.1 m/s) MV A Vmax 0.50 (0.4-1.3 m/s) LV E/e LAT 8.85 (<14) MV E/A Ratio 1.43 MV E/E' medial 8.00 MV E/E' lateral 8.89 Aortic Valve LVOT Area 3.44 cm2 AoV Area Vmax 2.99 cm2 LVOT Vmax 1.37 m/s AoV Area/ BSA (Vmax) 1.35 cm2/m2 LVOT Mean Daren. 0.86 m/s DAYANARA Mean Daren. 2.73 cm2 LVOT Peak Grad 7.5 mmHg DAYANARA Mean Daren. Index 1.24 cm2/m2 LVOT Mean Grad 3.6 mmHg LVOT VTI 0.278 m LVOT Diam s 2.05 cm AoV Vmax 1.58 m/s Velocity Ratio 0.86 AoV Mean Daren. 1.09 m/s AoV Peak Grad 9.9 mmHg LVOT SV 95.57 mL AoV Mean Grad 5.4 mmHg AoV VTI 0.296 m AoV Area VTI 3.23 cm2 AoV Area/ BSA (VTI) 1.46 cm/m2 Mitral Valve MV DT 218 (160-240 msec) MV PHT 63 msec MV Area PHT 3.48 cm2 MV VTI 0.259 m MV Area VTI 3.69 (4.0-6.0 cm2) Pulmonary Valve PV Vmax 1.05 (0.5-1.5 m/s) RVOT Peak Gr. 2.48 mmHg PV Peak Grad 4.4 mmHg RVOT Mean Gr. 1.05 mmHg PV Mean Grad 2.3 mmHg RVOT VTI 0.160 m PV VTI 0.211 m RVOT Vmax 0.79 m/s Tricuspid Valve TR Peak Grad 22.2 mmHg TR Vmax 2.36 m/s RA Pressure 3.00 mmHg RVSP (TR) 25.3 mmHg
== END ==
PROVIDERS: PCP Student in an Organized Health Care Education/Training Program; Visit Provider Student in an Organized Health Care Education/Training Program
DX: I12.9 Hypertensive chronic kidney disease with stage 1 through stage 4 chronic kidney disease, or unspecified chronic kidney disease (principal); I77.6 Arteritis, unspecified; R06.00 Dyspnea, unspecified; R60.0 Localized edema
CPT/HCPCS: 93306

== ENCOUNTER 2024-08-16 03:18 | Outpatient (CLI) | payer OTHER, SELFPAY ==
[2024-08-16 10:09] LABS: Abs Immature Grans 0.01 10^3/uL (0.0-0.06); Absolute Basophil Count 0.06 10^3/uL (0.0-0.2); Absolute Eosinophil Count 1.38 10^3/uL (0.0-0.7); Absolute Lymphocyte Count 2.54 10^3/uL (1.2-3.4); Absolute Monocyte Count 0.39 10^3/uL (0.1-0.8); Absolute Neutrophil Count 2.99 10^3/uL (1.2-6.7); Basophils % 0.8 %; Eosinophils % 18.7 %; HCT 40.4 % (36.0-46.0); HGB 13.8 g/dL (11.2-15.7); Immature Grans % 0.1 %; Lymphocytes % 34.5 %; MCH 30.3 pg (27.0-33.0); MCHC 34.2 % (32.0-36.0); MCV 89 fL (80-95); MPV 9.1 fL (8.0-11.0); Monocytes % 5.3 %; Neutrophils % 40.6 %; Platelet Count 227 10^3/uL (130-400); RBC 4.56 10^6/uL (3.93-5.22); RDW 12.2 % (11.7-14.6); WBC 7.37 10^3/uL (4.4-10.8)
[2024-08-16 10:20] LABS: Prothrombin Time 10.3 sec (9.1-11.1)
[2024-08-16 10:23] LABS: ALT 28 U/L (14-59); AST 16 U/L (15-37); Albumin 3.7 g/dL (3.4-5.0); Alkaline Phosphatase 38 U/L (46-116); Bilirubin, Direct 0.1 mg/dL (0.0-0.2); Total Protein 7.4 g/dL (6.4-8.2)
[2024-08-16 10:27] LABS: C-Reactive Protein < 0.50 mg/dL (<or=0.5)
== END 2024-08-16 03:19 | disposition home or self-care (01) ==
LOC: LBO 03:18
PROVIDERS: PCP Family Medicine; Visit Provider Surgery
DX: K80.20 Calculus of gallbladder without cholecystitis without obstruction (principal)
CPT/HCPCS: 36415; 80076; 85025; 85610; 86140

== ENCOUNTER 2024-09-15 14:13 | Outpatient (REF) | payer OTHER, SELFPAY ==
--- NOTE | 2024-09-15 14:00 | ENDOMET_PTH ---
PATIENT: Yesenia Young LOC: [facility] [place] U#:[id number] AGE/SX: 49/F ROOM: RE09/15/[address]: Zulema Roger DO : 1975 BED: DIS: 09/15/2024 SPEC #: [id number] RECD: 09/15/24 16:28 STATUS: FLORENCIO REQ #: [id number] ALMA: 09/15/24 14:[address]: Zulema Roger DEPT: Surgical Specimen RECD BY: Le Astudillo ENTERED: 09/15/24 16:30 SP TYPE: Endomet OTHR DR: Nader Anderson DO Tissues: 1 - ENDOMETRIUM BX/CURRETTE Procedures: GROSS AND MICRO LEVEL 4 Comments: [id number]
== END 2024-09-15 14:14 | disposition home or self-care (01) ==
LOC: LBN 14:13
PROVIDERS: PCP Family Medicine; Visit Provider Obstetrics & Gynecology
DX: N93.8 Other specified abnormal uterine and vaginal bleeding (principal); N60.91 Unspecified benign mammary dysplasia of right breast; R93.89 Abnormal findings on diagnostic imaging of other specified body structures
CPT/HCPCS: 88305

== ENCOUNTER 2024-12-14 02:09 | Outpatient (CLI) | payer OTHER, SELFPAY ==
[2024-12-14 08:11] LABS: Hemoglobin A1C 4.8 % (<5.7)
[2024-12-14 08:59] LABS: ALT 34 U/L (14-59); AST 17 U/L (15-37); Albumin 3.5 g/dL (3.4-5.0); Alkaline Phosphatase 53 U/L (46-116); Anion Gap 3.8 mmol/L (3-11); BUN 11 mg/dL (7-18); Bilirubin, Total 0.4 mg/dL (0.2-1.0); CO2 32.2 mmol/L (21.0-32.0); CREATININE 0.5 mg/dL (0.55-1.02); Calcium 9.1 mg/dL (8.5-10.1); Calculated LDL 109 mg/dL (<100); Chloride 105 mmol/L (98-107); Cholesterol 200 mg/dL (<200); Estimated GFR 115.62 (mL/min/1.73m2); Glucose 84 mg/dL (74-106); HDL Cholesterol 60 mg/dL (>or=50); Potassium 4.2 mmol/L (3.5-5.1); Sodium 141 mmol/L (136-145); Total Protein 7.3 g/dL (6.4-8.2); Triglyceride 155 mg/dL (<150)
[2024-12-14 09:30] LABS: Abs Immature Grans 0.02 10^3/uL (0.0-0.06); Absolute Basophil Count 0.06 10^3/uL (0.0-0.2); Absolute Lymphocyte Count 2.91 10^3/uL (1.2-3.4); Absolute Monocyte Count 0.52 10^3/uL (0.1-0.8); Absolute Neutrophil Count 3.46 10^3/uL (1.2-6.7); Basophils % 0.8 %; Eosinophils % 11.4 %; HCT 38.3 % (36.0-46.0); HGB 13.3 g/dL (11.2-15.7); Immature Grans % 0.3 %; MCH 30.7 pg (27.0-33.0); MCHC 34.7 % (32.0-36.0); MCV 89 fL (80-95); MPV 9.5 fL (8.0-11.0); Monocytes % 6.6 %; Neutrophils % 43.9 %; Platelet Count 281 10^3/uL (130-400); RBC 4.33 10^6/uL (3.93-5.22); RDW 12.6 % (11.7-14.6); RDW-SD 40.9 fL; WBC 7.87 10^3/uL (4.4-10.8)
== END 2024-12-14 02:10 | disposition home or self-care (01) ==
LOC: LBO 02:09
PROVIDERS: Student in an Organized Health Care Education/Training Program; PCP Family Medicine; Visit Provider Family Medicine
DX: Z91.89 Other specified personal risk factors, not elsewhere classified (principal); Z13.220 Encounter for screening for lipoid disorders; R73.09 Other abnormal glucose; Z83.3 Family history of diabetes mellitus; I12.9 Hypertensive chronic kidney disease with stage 1 through stage 4 chronic kidney disease, or unspecified chronic kidney disease; M31.0 Hypersensitivity angiitis
CPT/HCPCS: 36415; 80053; 80061; 83036; 85025

== ENCOUNTER 2025-05-10 12:48 | Outpatient (CLI) | payer OTHER, SELFPAY ==
[2025-05-12 12:58] LABS: Lyme Ab w Rflx to Lyme Confirm Negative (Negative)
[2025-05-14 15:46] LABS: B. miyamotoi PCR Negative (Negative); Babesia divergens/MO-1 Negative (Negative); Ehrlichia muris eauclairensis Negative (Negative)
== END 2025-05-10 12:49 | disposition home or self-care (01) ==
LOC: LBO 12:51
PROVIDERS: PCP Family Medicine; Visit Provider Family Medicine
DX: W57.XXXA Bitten or stung by nonvenomous insect and other nonvenomous arthropods, initial encounter (principal); T14.90XA Injury, unspecified, initial encounter
CPT/HCPCS: 36415; 87798; 86618

== ENCOUNTER 2025-06-07 20:21 | Emergency (ER) | payer OTHER, SELFPAY ==
[2025-06-07 20:24] VITALS: BP 154/91; PULSE 71; RESP 18; TEMP 36.8; O2SAT 98
--- NOTE | 2025-06-07 20:45 | DI.RAD_ITS ---
Exam(s) XR WRIST RT COMPLETE EXAM: XR WRIST RT COMPLETE CLINICAL HISTORY: Joint swelling pain. TECHNIQUE: 2D digital imaging was performed. Three views. COMPARISON: No exams were available for comparison FINDINGS: BONES: No acute fracture is present. No bony destructive lesion is seen. JOINTS: The carpal bones are normally aligned. SOFT TISSUE: Swelling. No foreign body or abnormal gas collection. IMPRESSION: Soft tissue swelling. No bony abnormality. The preliminary [facility] report was reviewed. DATA REPOSITORY: RADIATION DOSE DELIVERED:
--- NOTE | 2025-06-07 20:45 | DI.RAD_ITS ---
Exam(s) XR WRIST LT COMPLETE EXAM: XR WRIST LT COMPLETE CLINICAL HISTORY: Joint swelling Pain. TECHNIQUE: 2D digital imaging was performed. Three views. COMPARISON: CR,XR XR WRIST RT COMPLETE from 06/07/2025 FINDINGS: BONES: No acute fracture is present. Mild deformity at the 5th metacarpal head. Screw noted at base of proximal phalanx of the thumb. There is an accessory ossicle at the dorsal base of the 3rd metacarpal. No bony destructive lesion is seen. JOINTS: The carpal bones are normally aligned. Mild degenerative changes at the 1st MCP joint. SOFT TISSUE: Chronic bony densities noted in the ulnar soft tissues. IMPRESSION: No acute abnormality. The preliminary [facility] report was reviewed. DATA REPOSITORY: RADIATION DOSE DELIVERED:
--- NOTE | 2025-06-07 20:50 | ED.GENADUL_ITS ---
Discharge Plan Disposition Patient Disposition: Home Condition: Stable Discharge Details Clinical Impression: Swelling of joint of both wrists Primary Care Provider: Nader Anderson ED Provider: Dana Bryant Home Meds and New Rx's Prescriptions: No Action Digestive Advantage Advanced 10 billion cell capsule 10 cell PO DAILY Qty: 30 11RF Rx Instructions: printing for [facility] propranolol 10 mg tablet 10 mg PO BID PRN (Reason: Palpitations; Anxiety Episode) Qty: 60 11RF Rx Instructions: Continue (DME) POCKET CHAMBER Spacer See Rx Instructions .ROUTE .MEDSUPPLY Qty: 1 0RF Rx Instructions: As directed albuterol sulfate [ProAir HFA] 90 mcg/actuation HFA aerosol inhaler 2 puff inhalation .COMPLEX PRN (Reason: shortness of breath or wheezing) Qty: 8.5 0RF Rx Instructions: 2 puffs inhaled Q 4-6H PRN; Dulera 200-5 mcg/actuation HFA aerosol inhaler 2 puff inhalation BID Qty: 13 0RF Rx Instructions: Use with spacer tamoxifen 20 mg tablet 20 mg PO DAILY Discharge Instructions Instructions: Swollen Joints (DC) Additional Instructions: Labs are largely within normal limits. Xrays show some degenerative changes or arthiritis in both wrists no acute abnormality. Please take Tylenol or Ibuprofen with food every 4-6 hours as needed for pain and swelling. Follow up with primary care provider in 3-5 days. Return to ED sooner if any worsening swelling, fever, rash or concerns. Rest ice compression and elevation. You may use the wrist splint for comfort. This could be a flare up of arthritis (you do have a history of polymyalgia rheumatica) or lymph edema. Thank you for allowing us to care for you today. Stand Alone Forms: Portal Information Referrals: Nader Anderson DO [Primary Care Provider, Medicine] - 5 days Referral Note: ER follow up, call for an appointment Clinical Impression: Swelling of joint of both wrists HPI General Mode of arrival: ambulatory . Date/Time Provider Initiated Documentation: 06/07/25 20:23 . Limitations to Documentation: no limitations . Information obtained by: patient, RN notes reviewed and old records reviewed . HPI Narrative: 49-year-old female presents to ER with a chief complaint of pain Tylenol wrist swelling and pain trying increased pain. Right is greater than left. Patient does have a history of lymph node biopsy AROUND the right arm status post breast cancer surgery. She also reports she had breast free construction surgery approximately 5 weeks ago and everything is feeling fine. She also notes that she just recently stopped taking doxycycline after a 21-day course for tick bite and stopped the doxycycline 2 days ago. She denies any known injuries. No fever chills rash or any other systemic symptoms. She does have swelling noted no erythema or warmth noted. Patient does not have a history of polymyalgia rheumatica and vasculitis could also be a factor. Other history includes Henoch purpura, breast cancer, Related Data Home Medications ?Medication ?Instructions ?Recorded ?Confirmed inhalational spacing device #1 ea 11/01/21 06/07/25 (POCKET CHAMBER spacer) L.acidoph,paracasei,B.animalis 10 10 cell (0 x 10 bill ion cell) PO 06/19/23 06/07/25 billion cell capsule (Digestive DAILY #30 caps Advantage Advanced Probiotic) propranolol 10 mg tablet 10 mg PO BID PRN Palpitation s; 06/19/23 06/07/25 Anxiety Episode #60 tabs albuterol sulfate 90 mcg/actuation 2 puff inhalation . COMPLEX PRN 03/21/25 06/07/25 aerosol inhaler (ProAir HFA) shortness of breath or wh eezing #8.5 grams mometasone-formoterol HFA 200 2 puff inhalation BID #1 3 grams 03/21/25 06/07/25 mcg-5 mcg/actuation aerosol inhaler (Dulera) tamoxifen 20 mg tablet 20 mg PO DAILY 06/07/2505/20 Previous Rx's ?Medication ?Instructions ?Recorded inhalational spacing device #1 ea 11/01/21 (POCKET CHAMBER spacer) L.acidoph,paracasei,B.animalis 10 10 cell (0 x 10 bill ion cell) PO 06/19/23 billion cell capsule (Digestive DAILY #30 caps Advantage Advanced Probiotic) propranolol 10 mg tablet 10 mg PO BID PRN Palpitation s; 06/19/23 Anxiety Episode #60 tabs albuterol sulfate 90 mcg/actuation 2 puff inhalation . COMPLEX PRN 03/21/25 aerosol inhaler (ProAir HFA) shortness of breath or wh eezing #8.5 grams mometasone-formoterol HFA 200 2 puff inhalation BID #1 3 grams 03/21/25 mcg-5 mcg/actuation aerosol inhaler (Dulera) Allergies Allergy/AdvReac Type Severity Reaction Status Date / Time adhesive Allergy Severe Skin Rash Verified 06/07/25 20:28 bacitracin (From Neosporin Allergy Mild RASH Verified 06/07/25 20:28 ([id number])) bacitracin zinc (From Allergy Mild RASH Verified 06/07/25 20:28 Neosporin ([id number])) lisinopril Allergy Mild Other (See Verified 06/07/25 20:28 Comment) neomycin sulfate (From Allergy Mild RASH Verified 06/07/25 20:28 Neosporin ([id number])) polymyxin B (From Neosporin Allergy Mild RASH Verified 06/07/25 20:28 ([id number])) SEASONAL ALLERGIES Allergy Intermediate rhinitis Uncoded 06/07/25 20:28 General Stated Complaint: Orthopedic BARNEY: 3 Review of Systems All systems reviewed & are unremarkable except as noted in HPI and below Constitutional Constitutional: Reports as per HPI, Denies body ache(s), Denies chills, Denies fever(s), Denies headache(s) and Denies malaise ENT Ears, Nose, Mouth, and Throat: Denies dizziness and Denies headache(s) Cardiovascular Cardiovascular: Denies chest pain, Denies syncope, Denies rapid heart rate and Denies dyspnea Respiratory Respiratory: Denies cough, Denies hemoptysis and Denies dyspnea Musculoskeletal Musculoskeletal: Reports arthralgias, Reports joint swelling (Bilateral wrist, right worse than left ) and Reports stiffness Integumentary/Breasts Skin/Breast: Denies erythema, Denies rash, Reports skin pain, Reports skin swelling and Denies wounds Neurologic Neurologic: Denies confusion, Denies dizziness, Denies syncope and Denies headache(s) Psychiatric Psychiatric: Denies confusion Exam Extrem Right upper extremity: wrist Details: tenderness and swelling Course Vital Signs Vital signs: Vital Signs Temperature 36.8 C 06/07/25 20:24 Pulse 71 06/07/25 20:24 Respiratory Rate 18 06/07/25 20:24 Blood Pressure 154/91 H 06/07/25 20:24 Pulse Oximetry 98 06/07/25 20:24 Temperature 36.8 C 06/07/25 20:24 Pulse 71 06/07/25 20:24 Respiratory Rate 18 06/07/25 20:24 Blood Pressure 154/91 H 06/07/25 20:24 Pulse Oximetry 98 06/07/25 20:24 Pain Level 3 06/07/25 20:24 Medical Decision Making 49-year-old female presents to ER with a chief complaint of pain Tylenol wrist swelling and pain trying increased pain. Right is greater than left. Patient does have a history of lymph node biopsy AROUND the right arm status post breast cancer surgery. She also reports she had breast free construction surgery approximately 5 weeks ago and everything is feeling fine. She also notes that she just recently stopped taking doxycycline after a 21-day course for tick bite and stopped the doxycycline 2 days ago. She denies any known injuries. No fever chills rash or any other systemic symptoms. She does have swelling noted no erythema or warmth noted. Patient does not have a history of polymyalgia rheumatica and vasculitis could also be a factor. Other history includes Henoch purpura, breast cancer, Differential diagnosis includes not limited to arthritis, lymphedema, underlying injury, occult fracture, anaplasmosis. Workup ordered including CBC CMP ESR CRP. Taken Lyme panel and bilateral wrist x-rays. Labs showed no leukocytosis, taken Lyme panel pending. CRP within normal limits ESR also within normal limits. Informed by the ED staff that patient is complaining of pinky and ring finger becoming numb. Discussed lab results and x-ray results with patient and family who verbalized understanding. All her questions were answered to the best my ability. I did encourage close follow-up with PCP. Patient discharged to home with wrist splint and instructed on RICE procedures and Tylenol ibuprofen. This text was generated using [employer] dictation system, please disregard any oddities of phrase or misspellings. Imaging Data Radiologic Study: Imaging: X-Ray Radiologist's impression: Age: 49 years old Clinical indication: Other: Joint swelling pain TECHNIQUE: Imaging protocol: Radiologic exam of the right wrist. Views: 3 or more views. COMPARISON: No relevant prior studies available. FINDINGS: Bones/joints: Three views of the right wrist reveal no acute fracture or dislocation. There is loss of the radiocarpal joint space with early remodeling of the distal radial articular surface suggesting early degenerative change. Soft tissues: There is soft tissue swelling throughout the distal forearm extending into the wrist. IMPRESSION: 1. Soft tissue swelling in the distal forearm and wrist. No acute fracture or dislocation. 2. Early degenerative change at the radiocarpal joint. Thank you for allowing us to participate in the care of your patient. Dictated and Authenticated by: Fam Champion MD Radiologic Study #2: Imaging: X-Ray Radiologist's impression: FINDINGS: Bones/joints: Three views of the left wrist reveal no acute fracture or dislocation. There is mild deformity of the distal left 5th metacarpal with an appearance suggesting old trauma There is a surgical screw at the base of the proximal 1st phalanx with the adjacent well corticated ossifications, probably a sequela of the prior trauma and/or accessory ossicles. Small accessory ossicles/sesamoid bones are noted adjacent to the 2nd, 3rd, and 4th metacarpophalangeal joints. There is a small well corticated ossification distal to the tip of the dilated process of the ulna. An accessory ossicle/sesamoid bone is suspected given other findings. A sequela of prior trauma could probably mimic this appearance. There is mild loss of the radiocarpal joint space as seen on the right with early remodeling of the distal radial articular surface. Soft tissues: No significant soft tissue swelling is demonstrated. The pronator quadratus fat plane is preserved. IMPRESSION: 1. No acute fracture or dislocation seen at the left wrist. 2. Early degenerative change at the radiocarpal joint, as seen on the right Lab Data Lab results reviewed: Yes I reviewed the patient's lab results. Labs: Laboratory Tests Range/Units 06/07/25 21:10 WBC (4.4-10.8) 10^3/uL 9.12 RBC (3.93-5.22) 10^6/uL 4.16 Hgb (11.2-15.7) g/dL 12.4 Hct (36.0-46.0) % 35.5 L MCV (80-95) fL 85 MCH (27.0-33.0) pg 29.8 MCHC (32.0-36.0) % 34.9 RDW (11.7-14.6) % 12.6 Plt Count (130-400) 10^3/uL 214 MPV (8.0-11.0) fL 9.0 Immature Gran % % 0.2 Neutrophils % % 49.0 Lymphocytes % % 35.7 Monocytes % % 5.5 Eosinophils % % 8.9 Basophils % % 0.7 Nucleated RBC % (0.0-0.3) % 0.0 Absolute Neutrophils (1.2-6.7) 10^3/uL 4.47 Absolute Lymphocytes (1.2-3.4) 10^3/uL 3.26 Absolute Monocytes (0.1-0.8) 10^3/uL 0.50 Absolute Eosinophils (0.0-0.7) 10^3/uL 0.81 H Absolute Basophils (0.0-0.2) 10^3/uL 0.06 ESR (0-20) mm/hr 3 Sodium (136-145) mmol/L 141 Potassium (3.5-5.1) mmol/L 3.5 Chloride (98-107) mmol/L 106 Carbon Dioxide (20.0-31.0) mmol/L 26.5 Anion Gap (3-11) mmol/L 8.5 BUN (9-23) mg/dL 11 Creatinine (0.55-1.02) mg/dL 0.5 L Est GFR (CKD-EPI 2020) (mL/min/1.73m2) 120.02 Glucose (74-106) mg/dL 100 Calcium (8.3-10.6) mg/dL 9.0 Total Bilirubin (0.2-1.2) mg/dL 0.40 AST (<34) U/L 41 H ALT (10-49) U/L 24 Alkaline Phosphatase (46-116) U/L 44 L C-Reactive Protein (<=0.50) mg/dL < 0.50 Total Protein (5.7-8.2) g/dL 6.7 Albumin (3.4-5.0) g/dL 4.0 PFSH All Active Problems (Updated 06/07/25 @ 21:55 by Dana Bryant NP) Swelling of joint of both wrists (Acute) Bitten or stung by nonvenomous insect and other nonvenomous arthropods, initial encounter (Acute) Sinusitis (Acute) Thickened endometrium (Acute) Cholelithiasis (Acute) Gallstone (Acute) 1cm, per 12/30/23 CT (incidental finding)(asymptomatic) Family history of diabetes mellitus (Acute) Bro just Dx (not overwt) Ventral hernia without obstruction or gangrene (Acute 01/01/24) Repaired, with revision needed;.. [ ] Feb 2024 sched? Skin cancer screening (Acute) 12/08/23 [facility] [place] requesting yearly skin checks.HE Genetic testing (Acute) Eligible, NCCN Criteria (BRCA1,2)..Ambry Testing planned ([email or web address] re: no discrimination) Invasive ductal carcinoma of breast (Acute 02/18/23) Upper/outer Quad, RT, estrogen receptor (+), MT+ 03/11/23 referred [place] [facility] [place] for reconstructive surgery Nephropathy (Acute) 11/25/22 [facility] [place] Albuminuria (Acute) PMR (polymyalgia rheumatica) (Acute) Clinical Dx based on ppt pattern and Hx.. [ ] Rheum Henoch-Schonlein purpura (Acute) Per Derm Bx, d/w Rheum (10/28?) .. No renal involvement per labs. Possible lung involvement ? Prednisone trial helped, but NSAIDs planned for next flare PRN. Hypertension with renal disease (Acute) RESOLVED since HSP/Rheum Dz resolved/abated [all possibly 2' occult cancer, since Dx/Tx] .. [facility] [place] 08/24/23, elevated blood pressures, with proteinuria .. ACEi trial on HOLD. ARB ? Vasculitis (Acute) Asthma (Chronic) Family hx of colon cancer (Acute) Paternal aunt.. and no colo report for Fa. Family history of rheumatic joint disease (Acute) Leucocytoclastic vasculitis (Acute ~09/2021) on distal legs; 10/01/21 [facility] [place], yet still unclear etiology, Bx [ ] .. Atypical ductal hyperplasia of right breast (Acute) 07/25/21 [facility] [place] [place] Urinary incontinence, mixed (Acute) Cystocele (Acute) Grade 1 DUB (dysfunctional uterine bleeding) (Acute) Family history of CVA (Acute) Fa BMI 30.0-30.9,adult (Acute) Mantoux: positive (Chronic) Hx TB exposure @ workplace in 20s. Rx given (?). Uterine fibroid (Acute) Medical History Malignant neoplasm of right breast in female, estrogen receptor positive Family history of bladder cancer Macromastia Symptomatic Neuropathy of upper extremity 11/25/22 [facility] [place] Leg edema Subacute, since HSP .. improved Renal colic on right side MARIEL inhibitor intolerance on HOLD 2' cough/bad taste .. Nephro may re-start, but I prefer ARB. VM. Inflammation of intestines Doubtful, but DDx 2' HCP and Hx acute hemorrhoid Acute hemorrhoid Probably 2' episode of constipation associated with Paxlovid use for COVID, but concerning as HSP can have serious GI pathology (vasculitis/ischemic bowel). COVID-05 November 2021. Onset this am, with H/A, SOB, Wheezing, Fatigue. Wheezing now worse as it is on top of recent re-surge of wheezing (since Aug?).. 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 but HPS Dx explains most symp except SOB Pilonidal cyst with abscess (04/27/17) Pyelonephritis (~2009) inpatient x2 2009 and 11/2015 Obesity Low back pain Surgical History Hx of ventral hernia repair (03/17/24) By Dr. Platt. From [facility] [place] 04/25/24 S/P breast reconstruction, bilateral 06/23/24 [facility] Note: Revision to B/L reconstructed breasts w/ excision of RYAN flap skin paddles and autologous fat grafting (Brett).HE Original reconstruction Done at [facility] 04/23/2023 S/P breast biopsy, right 02/16/23 [facility] S/P colonoscopy History of partial mastectomy of right breast (01/05/21) Atypical ductal hyperplasia, LCIS, declines tamoxifen. NEG FROILAN ([facility] [place]c). H/O right breast biopsy 11/21/20 S/P surgical removal of pilonidal cyst S/P D&C (status post dilation and curettage) (11/10/03) History of transurethral resection of ureterocele (03/06/16) History of bunionectomy (~2016) R foot Dr Wick Biopsy, Soft Tissue (07/24/17) pilonidal cyst BROKEN THUMB Left Family History Mother Essential hypertension Depression Heart disease Asthma Breast cancer Father Essential hypertension Heart disease Hyperlipidemia Stroke Sister Essential hypertension Hyperlipidemia Asthma Brother Essential hypertension Grandfather Heart disease Grandfather Heart disease Grandmother Heart disease Grandmother Heart disease Maternal Aunt Neoplasm BREAST Family History Neoplasm COLON,SKIN,PANCREATIC Paternal Aunt Colon cancer Social History Smoking/Tobacco Use Status: Former Tobacco Use Quit Date: 07/20/05 Tobacco: How many years used: 4 Quit status: quit date established (2002) Smoking risk assessment performed?: Yes Alcohol Intake: current Alcohol Intake frequency: 0-2 drinks per day Alcohol type: beer and wine Drug use: Occasionally Substance use type: marijuana Adopted: No Caregiver/Support person: No Foster care: No Household members: spouse and children Housing: house Number of Children: 3 Do you need help understanding health information?: Rarely current occupation: Meeting Manager - [employer] Sexually active: Yes Do you think of yourself as: straight/heterosexual Current gender identity: female Do you feel safe at home: Yes Do you feel safe in your relationship?: Yes PAWSS Have you Been Recently Intoxicated or Drunk Within the Last 30 days?: No Have you Ever Experienced Previous Episodes of Alcohol Withdrawal?: No Have you ever Experienced Withdrawal Seizures?: No Have you ever Experienced Delirium Tremens(DT)s?: No Have you ever undergone Alcohol Rehabilitation Treatment (i.e, inpt ot outpatient treatment programs)?: No Have you ever Experienced Blackouts?: No Have you ever Combined Alcohol with other Downers within the last 90 days?: No Have you ever Combined Alcohol with any other Substance of Abuse during the last 90 days?: No Positive Blood Alcohol level on Presentation? [PCS.BAL]: No Evidence of Increased Autonomic Activity (i.e. HR>120, tremor, sweating, agitation, nausea)?: No Result: 0
[2025-06-07 21:19] LABS: Abs Immature Grans 0.02 10^3/uL (0.0-0.06); HCT 35.5 % (36.0-46.0); HGB 12.4 g/dL (11.2-15.7); Immature Grans % 0.2 %; MCH 29.8 pg (27.0-33.0); MCHC 34.9 % (32.0-36.0); MCV 85 fL (80-95); MPV 9.0 fL (8.0-11.0); Platelet Count 214 10^3/uL (130-400); RBC 4.16 10^6/uL (3.93-5.22); RDW 12.6 % (11.7-14.6); RDW-SD 38.7 fL; WBC 9.12 10^3/uL (4.4-10.8)
[2025-06-07 21:36] LABS: ESR 3 mm/hr (0-20)
--- NOTE | 2025-06-07 21:39 | DI.VRAD_ITS ---
PROCEDURE INFORMATION: Exam: XR Right Wrist Exam date and time: 06/07/2025 9:20 PM Age: 49 years old Clinical indication: Other: Joint swelling pain TECHNIQUE: Imaging protocol: Radiologic exam of the right wrist. Views: 3 or more views. COMPARISON: No relevant prior studies available. FINDINGS: Bones/joints: Three views of the right wrist reveal no acute fracture or dislocation. There is loss of the radiocarpal joint space with early remodeling of the distal radial articular surface suggesting early degenerative change. Soft tissues: There is soft tissue swelling throughout the distal forearm extending into the wrist. IMPRESSION: 1. Soft tissue swelling in the distal forearm and wrist. No acute fracture or dislocation. 2. Early degenerative change at the radiocarpal joint. Dictated and Authenticated by: Fam Champion MD. Orderin Annette Cortez MD
[2025-06-07 21:44] LABS: C-Reactive Protein < 0.50 mg/dL (<=0.50)
[2025-06-07 21:45] LABS: ALT 24 U/L (10-49); AST 41 U/L (<34); Albumin 4.0 g/dL (3.4-5.0); Alkaline Phosphatase 44 U/L (46-116); Anion Gap 8.5 mmol/L (3-11); BUN 11 mg/dL (9-23); Bilirubin, Total 0.40 mg/dL (0.2-1.2); CO2 26.5 mmol/L (20.0-31.0); Calcium 9.0 mg/dL (8.3-10.6); Chloride 106 mmol/L (98-107); Glucose 100 mg/dL (74-106); Potassium 3.5 mmol/L (3.5-5.1); Sodium 141 mmol/L (136-145); Total Protein 6.7 g/dL (5.7-8.2)
--- NOTE | 2025-06-07 21:46 | DI.VRAD_ITS ---
PROCEDURE INFORMATION: Exam: XR Left Wrist Exam date and time: 06/07/2025 9:21 PM Age: 49 years old Clinical indication: Other: Joint swelling pain TECHNIQUE: Imaging protocol: Radiologic exam of the left wrist. Views: 3 or more views. COMPARISON: No relevant prior studies available. FINDINGS: Bones/joints: Three views of the left wrist reveal no acute fracture or dislocation. There is mild deformity of the distal left 5th metacarpal with an appearance suggesting old trauma There is a surgical screw at the base of the proximal 1st phalanx with the adjacent well corticated ossifications, probably a sequela of the prior trauma and/or accessory ossicles. Small accessory ossicles/sesamoid bones are noted adjacent to the 2nd, 3rd, and 4th metacarpophalangeal joints. There is a small well corticated ossification distal to the tip of the dilated process of the ulna. An accessory ossicle/sesamoid bone is suspected given other findings. A sequela of prior trauma could probably mimic this appearance. There is mild loss of the radiocarpal joint space as seen on the right with early remodeling of the distal radial articular surface. Soft tissues: No significant soft tissue swelling is demonstrated. The pronator quadratus fat plane is preserved. IMPRESSION: 1. No acute fracture or dislocation seen at the left wrist. 2. 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 Dictated and Authenticated by: Fam Champion MD. Orderin Annette Cortez MD
[2025-06-09 10:18] LABS: Lyme Ab w Rflx to Lyme Confirm Negative (Negative)
[2025-06-11 15:43] LABS: B. miyamotoi PCR Negative (Negative); Babesia divergens/MO-1 Negative (Negative); Ehrlichia muris eauclairensis Negative (Negative)
== END 2025-06-07 22:16 | disposition home or self-care (01) ==
PROVIDERS: Emergency Provider Registered Nurse Emergency; PCP Family Medicine
DX: M25.431 Effusion, right wrist (principal); M25.432 Effusion, left wrist
CPT/HCPCS: 99283; 99284; 36415; 80053; 85652; 87798; 73110; 85025; 86140; 86618

== ENCOUNTER → 2025-06-12 13:17 | Outpatient (CLI) | payer OTHER, SELFPAY ==
--- NOTE | 2025-06-12 11:42 | DI.CT_ITS ---
Exam(s) CT CHEST W EXAM: CT CHEST W CLINICAL HISTORY: New onset lymphedema R arm, r/o new mass, I89.0 C50.919 TECHNIQUE: Imaging Protocol: Axial computed tomography images with coronal and sagittal reformatted images were created and reviewed. Computer aided detection (CAD) was utilized. CONTRAST MATERIAL: Intravenous: Omnipaque 350 Contrast volume:70 ml. COMPARISON: CT CT CHEST WO from 01/09/2022 FINDINGS: Pulmonary parenchyma: No consolidation. No dominant measurable mass. Mild atelectasis or scarring at the inferior right middle lobe and lingula. Tracheobronchial tree: No bronchiectasis or mucous plugging. Mediastinum and Zeina: No dominant adenopathy or fluid collection. Pleura: No effusion. No pneumothorax. Heart: The heart is not dilated. No coronary artery calcifications are seen. Aorta: Thoracic aorta non-dilated. No atherosclerotic changes. Pulmonary arteries: No gross evidence of emboli. Upper abdomen: No acute findings. Bones: Minimaldegenerative changes in the spine. Soft tissues: Bilateral breast implants which appear intact. No evidence of an axillary mass or adenopathy. IMPRESSION: No acute abnormality. RADIATION DOSE DELIVERED: Total DLP DATA REPOSITORY: All CT scans at this facility are submitted to the National Radiology Data Registry (NRDR) Dose Index Registry (DIR) with the [employer] ([employer]). RADIATION OPTIMIZATION: All CT scans at this facility use at least one of these dose optimization techniques: automated exposure control; mA and/or kV adjustment per patient size (includes targeted exams where dose is matched to clinical indication); or iterative reconstruction.
[2025-06-12] MEDS: Normal Saline - Diluent 50 ML VIAL IJ (15:46)
[2025-06-12] MEDS: Omnipaque 350 MG/ML 100 ML BTL IJ (15:47)
[2025-06-12] MEDS: Normal Saline Flush 10 ML SYR IVP (15:47)
== END ==
LOC: DI 13:17
PROVIDERS: PCP Family Medicine; Visit Provider Family Medicine
DX: I89.0 Lymphedema, not elsewhere classified (principal); C50.919 Malignant neoplasm of unspecified site of unspecified female breast
CPT/HCPCS: 71260; J3490

== ENCOUNTER 2025-06-20 15:18 | Outpatient (CLI) | payer OTHER, SELFPAY ==
[2025-06-22 10:46] LABS: Lyme Ab w Rflx to Lyme Confirm Negative (Negative)
[2025-06-23 14:52] LABS: B. miyamotoi PCR Negative (Negative); Babesia divergens/MO-1 Negative (Negative); Ehrlichia muris eauclairensis Negative (Negative)
== END 2025-06-20 15:19 | disposition home or self-care (01) ==
LOC: LBO 15:18
PROVIDERS: PCP Family Medicine; Visit Provider Family Medicine
DX: W57.XXXA Bitten or stung by nonvenomous insect and other nonvenomous arthropods, initial encounter (principal); T14.90XA Injury, unspecified, initial encounter
CPT/HCPCS: 36415; 87798; 86618